=== PATIENT | male | born 1945 | race Asian ===

== ENCOUNTER 2017-01-04 02:21 | Emergency (ER) | payer OTHER, MEDICAID ==
[~2017-01-04] VITALS: Ht 162.6 cm; Wt 63.5 kg
[~2017-01-04 02:21] MED LIST: NITROFURANTOIN100 M2 ORAL; NKM
[2017-01-04 02:44] VITALS: BP 141/93
--- NOTE | 2017-01-04 02:46 | Emergency Room Report ---
History of Present Illness General Chief Complaint: Male Urogenital Problems Source: Patient Present Illness HPI Patient presents reporting that since 1:30 in the afternoon yesterday he was not able to urinate he is now having increased pressure and discomfort in the suprapubic area Patient had a similar problem last year Hasn't had any problems since then patient reports taking some portuguese medication for a recent URI Patient denies any other chest pain or shortness of breath denies any back or flank pain Denies any blood in the urine Allergies: Coded Allergies: No Known Allergies (Verified Allergy, Unknown, 09/18/10) Patient History Past Medical History: see triage record Pertinent Family History: none Reviewed Nursing Documentation: PMH: Agreed, PSxH: Agreed Nursing Documentation-PMH Hx Asthma: Yes Review of Systems All Other Systems: negative except mentioned in HPI Physical Exam Vital Signs Date Time Temp Pulse Resp B/P Pulse Ox O2 Delivery O2 Flow Rate FiO2 01/04/17 02:26 97.7 83 18 141/93 98 Room Air Sp02 EP Interpretation: reviewed, normal General Appearance: well appearing, no apparent distress Head: normocephalic, atraumatic Eyes: bilateral eye EOMI, bilateral eye PERRL ENT: hearing grossly normal, normal pharynx, TMs + canals normal, uvula midline Neck: full range of motion, supple, no meningismus, no bony tend Respiratory: lungs clear, normal breath sounds, no rhonchi, no respiratory distress, no retraction, no accessory muscle use Cardiovascular #1: normal peripheral pulses, regular rate, rhythm, no edema, no gallop, no JVD, no murmur Gastrointestinal: normal bowel sounds, non tender, soft, no mass, no organomegaly, non-distended, no guarding, no hernia, no pulsatile mass, no rebound Genitourinary: no CVA tenderness Musculoskeletal: normal inspection Neurologic: oriented x3, responsive, associate director qa III-XII nml as tested, motor strength/ tone normal, sensory intact Psychiatric: mood/affect normal Skin: normal color, no rash, warm/dry, palpation normal Lymphatic: normal inspection, no adenopathy Medical Decision Making Diagnostic Impression: Primary Impression: Acute urinary retention ER Course Multiple differentials including not limited to stricture, enlarged prostate, infectious pathology entertained After the catheter was placed patient did have almost 750 mL of urine output At this time Castrejon will be left in place the patient requires close outpatient urology followup Last Vital Signs Date Time Temp Pulse Resp B/P Pulse Ox O2 Delivery O2 Flow Rate FiO2 01/04/17 02:26 97.7 83 18 141/93 98 Room Air Status: improved Disposition: HOME, SELF-CARE Condition: Improved Additional Instructions: Patient is provided with the discharge instructions notified to follow up with primary doctor in the next 2-3 days otherwise return to the er with any worsening symptoms. Please note that this report is being documented using [employer] technology. This can lead to erroneous entry secondary to incorrect interpretation by the dictating instrument. LOIS ORTIZ D.O. January 04, 2017 02:46
[2017-01-04 03:35] VITALS: BP 141/93
== END 2017-01-04 03:35 | disposition home or self-care (01) ==
LOC: EMR 02:45
DX: R33.9 Retention of urine, unspecified (principal); R39.198 Other difficulties with micturition
CPT/HCPCS: 51702

== ENCOUNTER 2018-07-28 07:31 | Emergency (ER) | payer MEDICARE, MEDICAID ==
[~2018-07-28] VITALS: Ht 167.6 cm; Wt 63.5 kg
[2018-07-28 07:49] VITALS: BP 118/76
--- NOTE | 2018-07-28 07:57 | Emergency Room Report ---
History of Present Illness General Chief Complaint: Male Urogenital Problems Source: Patient Present Illness HPI Patient is a 72-year-old male who presented after increased urinary retention since last night. Patient reports having increased nausea. He last voided last night. He had not been vomiting. Patient had prior history of prostate disease. The patient reports having increased abdominal discomfort. Allergies: Coded Allergies: No Known Allergies (Verified Allergy, Unknown, 09/18/10) Patient History Past Medical History: see triage record Reviewed Nursing Documentation: PMH: Agreed; PSxH: Agreed Nursing Documentation-PMH Past Medical History: No History, Except For Hx Asthma: Yes Hx Dialysis: No - BPH Review of Systems All Other Systems: negative except mentioned in HPI Physical Exam Vital Signs Date Time Temp Pulse Resp B/P (MAP) Pulse Ox O2 Delivery O2 Flow Rate FiO2 07/28/18 07:39 97.7 73 20 115/73 98 07/28/18 07:49 Room Air Sp02 EP Interpretation: reviewed, normal General Appearance: normal inspection, well appearing, no apparent distress, alert, GCS 15, non-toxic Head: atraumatic ENT: normal ENT inspection, hearing grossly normal, normal voice Neck: normal inspection, full range of motion, supple, no bony tend Respiratory: normal inspection, lungs clear, normal breath sounds, no respiratory distress, no retraction, no wheezing Cardiovascular #1: regular rate, rhythm, no edema Gastrointestinal: normal inspection, normal bowel sounds, soft, no guarding, no hernia, other - suprapubic bladder distention Genitourinary: no CVA tenderness Musculoskeletal: normal inspection, back normal, normal range of motion Neurologic: normal inspection, alert, oriented x3, responsive, passenger agent III-XII nml as tested, speech normal Psychiatric: normal inspection, judgement/insight normal, mood/affect normal Skin: normal inspection, normal color, no rash Medical Decision Making Diagnostic Impression: Primary Impression: Acute urinary retention ER Course Patient presented for urinary retention. The differential diagnosis included was not limited to prostatic hypertrophy, medication reaction, cauda equina syndrome, urinary infection among others. Patient has a benign exam and does not appear to require any further imaging or laboratory testing at this time. The Castrejon catheter was placed. Patient was advised to recheck with primary care physician for possible catheter removal. Patient given prescription for Flomax others no evidence of urinary infection this time. Last Vital Signs Date Time Temp Pulse Resp B/P (MAP) Pulse Ox O2 Delivery O2 Flow Rate FiO2 07/28/18 07:49 97.9 75 18 118/76 98 Room Air Status: improved Disposition: HOME, SELF-CARE Condition: Stable Scripts Tamsulosin Hcl (TAMSULOSIN HCL*) 0.4 Mg Cap.er.24h 0.4 MG ORAL BEDTIME, #14 CAP Prov: Simon Duque MD 07/28/18 Simon Duque MD Jul 28, 2018 07:57
[2018-07-28 08:57] LABS: APPEARANCE,URINE CLEAR; BILIRUBIN, URINE NEGATIVE (NEGATIVE); COLOR,URINE PALE YELLOW; GLUCOSE, URINE (UA) NEGATIVE (NEGATIVE); KETONES,URINE NEGATIVE (NEGATIVE); LEUKOCYTE ESTERASE ,URINE NEGATIVE (NEGATIVE); NITRITE,URINE NEGATIVE (NEGATIVE); PH,URINE 5 (4.5-8.0); PROTEIN,URINE NEGATIVE (NEGATIVE); UROBILINOGEN,URINE NORMAL MG/DL (0.0-1.0)
[2018-07-28] MEDS ORDERED: TAMSULOSIN HCL0.4 MG ORAL (09:07)
[2018-07-28 09:18] VITALS: BP 116/75
== END 2018-07-28 09:22 | disposition home or self-care (01) ==
LOC: EMR 09:00
DX: N40.1 Benign prostatic hyperplasia with lower urinary tract symptoms (principal); R33.8 Other retention of urine; J45.909 Unspecified asthma, uncomplicated
CPT/HCPCS: 51702; 81003; 99284

== ENCOUNTER 2019-02-14 05:43 | Emergency (ER) | payer MEDICARE, MEDICAID ==
[~2019-02-14] VITALS: Ht 165.1 cm; Wt 63.5 kg
[~2019-02-14 05:43] MED LIST changes: +TAMSULOSIN HCL0.4 MG ORAL
--- NOTE | 2019-02-14 05:50 | NUR ---
PT CALLED TO TRIAGE PT IS IN RESTROOM
[2019-02-14 06:08] VITALS: BP 103/61
--- NOTE | 2019-02-14 06:08 | NUR ---
ED Nurse Note: pt walked in c/o unable to urinate since last night, pt reports it happened twice before and came to hospital but doesn't take any medication for it, pt reports it happens only when he drinks alcohol. pt states he urinated prior to walk in but only small amount came out. denies pain. will cont monitor.
--- NOTE | 2019-02-14 06:22 | NUR ---
ED Nurse Note: 16 fr ferrer cath inserted per ERMD order, 10cc ns inserted, pt tolerated well, secured with dressing, 40cc yellow urine returned, specimen obtained, will send to lab.
--- NOTE | 2019-02-14 06:40 | NUR ---
ED Nurse Note: blood and urine specimen sent to lab.
[2019-02-14 06:51] LABS: APPEARANCE,URINE CLEAR; BILIRUBIN, URINE NEGATIVE (NEGATIVE); COLOR,URINE PALE YELLOW; GLUCOSE, URINE (UA) NEGATIVE (NEGATIVE); KETONES,URINE NEGATIVE (NEGATIVE); LEUKOCYTE ESTERASE ,URINE NEGATIVE (NEGATIVE); NITRITE,URINE NEGATIVE (NEGATIVE); PH,URINE 6 (4.5-8.0); PROTEIN,URINE NEGATIVE (NEGATIVE); UROBILINOGEN,URINE NORMAL MG/DL (0.0-1.0)
[2019-02-14 06:57] LABS: BASOPHILS % (AUTO) 2.4 % (0.0-2.0); EOSINOPHILS % (AUTO) 3.2 % (0.0-3.0); HEMATOCRIT 46.6 % (42.0-52.0); HEMOGLOBIN 15.4 G/DL (14.2-18.0); LYMPHOCYTES % (AUTO) 33.3 % (20.0-45.0); MEAN CORPUSCULAR VOLUME 91 FL (80-99); MONOCYTES % (AUTO) 7.4 % (1.0-10.0); NEUTROPHILS % (AUTO) 53.7 % (45.0-75.0); PLATELET COUNT 218 K/UL (150-450); RED CELL DISTRIBUTION WIDTH 12.7 % (11.6-14.8)
--- NOTE | 2019-02-14 07:03 | NUR ---
HAND-OFF: Report given to RN LATESHA and endorsed care.
[2019-02-14] MEDS ORDERED: Tamsulosin 0.4mg cap ORAL ONE (07:04)
--- NOTE | 2019-02-14 07:10 | NUR ---
ED Nurse Note: pt was medicated as ordered, pt able to tolerate po med.pt denies any pain. vs within normal limit. will continue to monitor
[2019-02-14 07:17] VITALS: BP 102/77
[2019-02-14 07:21] LABS: ANION GAP 12 mmol/L (5-15); BLOOD UREA NITROGEN 23 mg/dL (7-18); CARBON DIOXIDE 23 MMOL/L (21-32); CHLORIDE 104 MMOL/L (98-107); CREATININE 1.1 MG/DL (0.55-1.30); POTASSIUM 4.2 MMOL/L (3.5-5.1); SODIUM 139 MMOL/L (136-145)
[2019-02-14 07:25] LABS: ALANINE AMINOTRANSFERASE 28 U/L (12-78); ALBUMIN 4.3 G/DL (3.4-5.0); ALBUMIN/GLOBULIN RATIO 1.3 (1.0-2.7); ALKALINE PHOSPHATASE 65 U/L (46-116); ASPARTATE AMINO TRANSFERASE 18 U/L (15-37); BILIRUBIN,TOTAL 0.6 MG/DL (0.2-1.0)
--- NOTE | 2019-02-14 07:38 | Emergency Room Report ---
History of Present Illness General Chief Complaint: Male Urogenital Problems Source: Patient Present Illness [facility] The patient presents with difficulty urinating. He is able to pass a small amount. He has had to have a Castrejon catheter placed twice in the past. He has not followed up with a urologist. He denies taking medication in the past. However review of old records suggest that he was on Flomax in the past. He denies fevers or chills. He denies dysuria. He has not changed any medications at this time. He rates the pain 0/10. There is no hematuria. No chest pain, palpitations, nausea, vomiting, diarrhea, abdominal pain, shortness of breath, depression, visual changes, headache. History of asthma. Allergies: Coded Allergies: No Known Allergies (Verified Allergy, Unknown, 09/18/10) Patient History Past Medical History: see triage record Past Surgical History: appy Nursing Documentation-H Past Medical History: No History, Except For Hx Hypertension: Yes Hx Asthma: Yes Hx Dialysis: No - BPH Review of Systems All Other Systems: negative except mentioned in HPI Physical Exam Vital Signs Date Time Temp Pulse Resp B/P (MAP) Pulse Ox O2 Delivery O2 Flow Rate FiO2 02/14/19 06:02 98.2 88 19 103/61 (75) 97 Room Air Sp02 EP Interpretation: reviewed, normal General Appearance: well appearing, no apparent distress, GCS 15 Head: normocephalic, atraumatic Eyes: bilateral eye normal inspection, bilateral eye PERRL ENT: moist mucus membranes Neck: supple Respiratory: lungs clear, normal breath sounds Cardiovascular #1: regular rate, rhythm Cardiovascular #2: 2+ radial (R) Gastrointestinal: normal inspection, normal bowel sounds, non tender, non- distended, other - Suprapubic fullness Genitourinary: no CVA tenderness, penis normal Musculoskeletal: back normal, gait/station normal, normal range of motion Neurologic: alert, oriented x3, grossly normal Psychiatric: mood/affect normal Skin: no rash Medical Decision Making Diagnostic Impression: Primary Impression: Acute urinary retention ER Course Patient presents with inability to urinate. Differential includes UTI, BPH, renal failure, electrolyte imbalance amongst others. A Castrejon will be passed. Laboratory tests are indicated. Flomax will be given. Large amount of urine is obtained with passing the Castrejon. He has improvement after this. Laboratory with normal renal function and no evidence of UTI. Patient improved. Discussed the need to have the Castrejon continue until the Flomax begins to work. He is also advised to follow-up with a urologist. He has none and therefore will follow up with his own private doctor. Instructions were given both to the patient and his . Patient stable for outpatient observation and treatment. Laboratory Tests Test 02/14/19 06:10 White Blood Count 7.0 K/UL (4.8-10.8) Red Blood Count 5.10 M/UL (4.70-6.10) Hemoglobin 15.4 G/DL (14.2-18.0) Hematocrit 46.6 % (42.0-52.0) Mean Corpuscular Volume 91 FL (80-99) Mean Corpuscular Hemoglobin 30.2 PG (27.0-31.0) Mean Corpuscular Hemoglobin Concent 33.1 G/DL (32.0-36.0) Red Cell Distribution Width 12.7 % (11.6-14.8) Platelet Count 218 K/UL (150-450) Mean Platelet Volume 6.4 FL (6.5-10.1) L Neutrophils (%) (Auto) 53.7 % (45.0-75.0) Lymphocytes (%) (Auto) 33.3 % (20.0-45.0) Monocytes (%) (Auto) 7.4 % (1.0-10.0) Eosinophils (%) (Auto) 3.2 % (0.0-3.0) H Basophils (%) (Auto) 2.4 % (0.0-2.0) H Urine Color Pale yellow Urine Appearance Clear Urine pH 6 (4.5-8.0) Urine Specific [place] 1.010 (1.005-1.035) Urine Protein Negative (NEGATIVE) Urine Glucose (UA) Negative (NEGATIVE) Urine Ketones Negative (NEGATIVE) Urine Blood 1+ (NEGATIVE) H Urine Nitrite Negative (NEGATIVE) Urine Bilirubin Negative (NEGATIVE) Urine Urobilinogen Normal MG/DL (0.0-1.0) Urine Leukocyte Esterase Negative (NEGATIVE) Urine RBC 2-4 /HPF (0 - 0) H Urine WBC 0-2 /HPF (0 - 0) Urine Squamous Epithelial Cells Occasional /LPF Urine Bacteria Occasional /HPF (NONE) Sodium Level 139 MMOL/L (136-145) Potassium Level 4.2 MMOL/L (3.5-5.1) Chloride Level 104 MMOL/L (98-107) Carbon Dioxide Level 23 MMOL/L (21-32) Anion Gap 12 mmol/L (5-15) Blood Urea Nitrogen 23 mg/dL (7-18) H Creatinine 1.1 MG/DL (0.55-1.30) Estimate Glomerular Filtration Rate mL/min (>60) Glucose Level 102 MG/DL (74-106) Calcium Level 9.0 MG/DL (8.5-10.1) Total Bilirubin 0.6 MG/DL (0.2-1.0) Aspartate Amino Transferase (AST) 18 U/L (15-37) Alanine Aminotransferase (ALT) 28 U/L (12-78) Alkaline Phosphatase 65 U/L (46-116) Total Protein 7.7 G/DL (6.4-8.2) Albumin 4.3 G/DL (3.4-5.0) Globulin 3.4 g/dL Albumin/Globulin Ratio 1.3 (1.0-2.7) Lipase 117 U/L (73-393) Last Vital Signs Date Time Temp Pulse Resp B/P (MAP) Pulse Ox O2 Delivery O2 Flow Rate FiO2 02/14/19 07:49 98.5 62 16 102/77 98 Room Air Status: improved Disposition: HOME, SELF-CARE Condition: Improved Scripts Tamsulosin HCl (Flomax) 0.4 Mg Cap.er.24h 0.4 MG ORAL DAILY, #30 CAP 1 Refill Prov: Cj Sifuentes MD 02/14/19 Cj Sifuentes MD Feb 14, 2019 07:38
[2019-02-14] MEDS ORDERED: FLOMAX0.4 MG ORAL (07:40)
[2019-02-14 07:49] VITALS: BP 102/77
--- NOTE | 2019-02-14 07:49 | NUR ---
ER DISCHARGE NOTE: Patient is cleared to be discharged per ERMD, pt is aox4, on room air, with stable vital signs. pt was given dc and prescription instructions, pt was able to verbalize understanding, pt id band and iv site removed without complications. pt is able to ambulate with steady gait.pt left with ferrer catheter on as per md advise. pt teaching provided and pt verbalized understanding. pt took all belongings.
[2019-02-14] MEDS ORDERED: Tamsulosin 0.4mg cap ORAL SCH (21:00)
== END 2019-02-14 07:49 | disposition home or self-care (01) ==
LOC: EMR 07:45
DX: R33.9 Retention of urine, unspecified (principal); J45.909 Unspecified asthma, uncomplicated; I10 Essential (primary) hypertension
CPT/HCPCS: 36415; 80053; 81003; 83690; 85025; 99282

== ENCOUNTER 2020-08-07 12:42 | Inpatient (IN) | payer MEDICARE, MEDICAID ==
[~2020-08-07] VITALS: Ht 165.1 cm; Wt 65.8 kg
[~2020-08-07 12:42] MED LIST changes: +FLOMAX0.4 MG ORAL
[2020-08-07 12:50] VITALS: BP 118/80
[2020-08-07] MEDS ORDERED: Ketorolac 30mg Inj IV ONE (13:00)
[2020-08-07] MEDS ORDERED: dexAMETHasone 10mg/ml Inj IV ONE ×2 (13:15→13:18)
[2020-08-07] MEDS ORDERED: Albuterol/Ipratropium 3ml neb HHN ONE (13:15)
--- NOTE | 2020-08-07 13:17 | Emergency Room Report ---
History of Present Illness General Chief Complaint: Flu Like Symptoms Source: Patient, Family Member - Present Illness HPI Patient is a 74-year-old male past medical history of hypertension and asthma who presents to the ER complaining of flulike symptoms for 1 week. Patient co mplains of cough. He complains of generalized body aches and fatigue. He denies any chest pain or shortness of breath. Patient denies any abdominal pain or vomiting. He denies any dysuria or hematuria. His is also here for flulike symptoms. Allergies: Coded Allergies: No Known Allergies (Verified Allergy, Unknown, 09/18/10) COVID-19 Screening Contact w/high risk pt: No Experienced COVID-19 symptoms?: Yes COVID-19 Testing performed FARROWING WORKER: No Patient History Reviewed Nursing Documentation: PMH: Agreed; PSxH: Agreed Nursing Documentation-PMH Hx Hypertension: Yes Hx Asthma: Yes Hx Dialysis: No - BPH Review of Systems All Other Systems: negative except mentioned in HPI Physical Exam Vital Signs Date Time Temp Pulse Resp B/P (MAP) Pulse Ox O2 Delivery O2 Flow Rate FiO2 08/07/20 12:47 98.8 95 19 118/80 (93) 93 Room Air Sp02 EP Interpretation: reviewed, abnormal General Appearance: no apparent distress, alert, GCS 15, non-toxic Head: normocephalic, atraumatic Eyes: bilateral eye normal inspection, bilateral eye PERRL ENT: hearing grossly normal, normal pharynx, no angioedema, normal voice Neck: full range of motion, supple/symm/no masses Respiratory: chest non-tender, speaking full sentences, wheezing Cardiovascular #1: regular rate, rhythm Gastrointestinal: non tender, soft, no guarding, no rebound Rectal: deferred Musculoskeletal: normal range of motion Neurologic: acidizer III-XII nml as tested, oriented x3 Psychiatric: no suicidal/homicidal ideation Skin: no rash Lymphatic: no adenopathy Medical Decision Making Diagnostic Impression: Primary Impression: Influenza-like symptoms Additional Impression: Pneumonia ER Course Patient pending ER work-up, treatments, reevaluation and final disposition. Patient signed out to at 1400. EKG Diagnostic Results Troponin ordered: Yes When was troponin ordered?: Aug 07, 2020 EKG Time: 13:10 EP Interpretation: Renata Contreras MD Rate: normal - 88 bpm Rhythm: NSR ST Segments: no acute changes ASA given to the pt in ED: No Rhythm Strip Diag. Results Rhythm Strip Time: 13:16 EP Interpretation: yes - Renata Contreras MD Rate: 84 bpm Rhythm: NSR, no PVC's, no ectopy Chest X-Ray Diagnostic Results Chest X-Ray Diagnostic Results : Chest X-Ray Ordered: Yes # of Views/Limited/Complete: 1 View Indication: Chest Pain Interpretation: no effusion, no pneumothorax, other - Bilateral lower lobe patchy infiltrate Impression: Other - Atypical pneumonia Electronically Signed by: Renata Contreras MD Last Vital Signs Date Time Temp Pulse Resp B/P (MAP) Pulse Ox O2 Delivery O2 Flow Rate FiO2 08/07/20 12:47 98.8 95 19 118/80 (93) 93 Room Air Condition: Unknown Additional Instructions: Please note that this report is being documented using [employer] technology. This can lead to erroneous entry secondary to incorrect interpretation by the dictating instrument. Renata Contreras M.D. Aug 07, 2020 13:17
[2020-08-07] MEDS ORDERED: Cefepime HCl 2 GM in D5W 55 ML IVPB ONE (13:45)
[2020-08-07] MEDS ORDERED: Azithromycin 500 MG in NS 275 ML IV ONE (13:45)
[2020-08-07 14:12] LABS: CALCIUM 8.4 MG/DL (8.5-10.1); CREATININE 1.2 MG/DL (0.55-1.30); POTASSIUM 3.4 MMOL/L (3.5-5.1)
[2020-08-07 14:15] VITALS: BP 123/84
[2020-08-07 14:16] LABS: BASOPHILS % (AUTO) 2.9 % (0.0-2.0); HEMATOCRIT 43.7 % (42.0-52.0); HEMOGLOBIN 15.9 G/DL (14.2-18.0); LYMPHOCYTES % (AUTO) 12.4 % (20.0-45.0); MEAN CORPUSCULAR VOLUME 85 FL (80-99); MONOCYTES % (AUTO) 13.9 % (1.0-10.0); NEUTROPHILS % (AUTO) 70.8 % (45.0-75.0); PLATELET COUNT 131 K/UL (150-450); RED BLOOD COUNT 5.12 M/UL (4.70-6.10); RED CELL DISTRIBUTION WIDTH 11.8 % (11.6-14.8); WHITE BLOOD COUNT 4.6 K/UL (4.8-10.8)
[2020-08-07 14:24] LABS: APPEARANCE,URINE CLEAR; BILIRUBIN, URINE NEGATIVE (NEGATIVE); GLUCOSE, URINE (UA) NEGATIVE (NEGATIVE); KETONES,URINE NEGATIVE (NEGATIVE); LEUKOCYTE ESTERASE ,URINE NEGATIVE (NEGATIVE); NITRITE,URINE NEGATIVE (NEGATIVE); PH,URINE 6 (4.5-8.0); PROTEIN,URINE 3+ (NEGATIVE); UROBILINOGEN,URINE NORMAL MG/DL (0.0-1.0)
[2020-08-07 14:28] LABS: ALBUMIN/GLOBULIN RATIO 1.1 (1.0-2.7); BILIRUBIN,TOTAL 0.6 MG/DL (0.2-1.0); COLOR,URINE YELLOW
--- NOTE | 2020-08-07 14:35 | Diagnostic Imaging Report ---
EXAM: XR Chest, 1 View CLINICAL HISTORY: COUGH TECHNIQUE: Frontal view of the chest. COMPARISON: None FINDINGS: Hardware: None. Lungs/pleura: Patchy opacities in the mid and lower lung. No pleural effusion or pneumothorax. Heart/mediastinum: Normal. No cardiomegaly. Soft tissues: Unremarkable. Bones: No acute fracture. Upper abdomen: Normal. IMPRESSION: Patchy opacities in the mid and lower lungs, concerning for an infectious/inflammatory process.
[2020-08-07] MEDS ORDERED: LOSARTAN POTASS25 MG ORAL (14:56)
[2020-08-07] MEDS ORDERED: METOPROLOL TART25 MG ORAL (14:56)
--- NOTE | 2020-08-07 15:05 | Emergency Room Report ---
Physical Exam Vital Signs Date Time Temp Pulse Resp B/P (MAP) Pulse Ox O2 Delivery O2 Flow Rate FiO2 08/07/20 12:47 98.8 95 19 118/80 (93) 93 Room Air Sp02 EP Interpretation: reviewed, abnormal Medical Decision Making Diagnostic Impression: Primary Impression: COVID-19 Additional Impressions: Pneumonia Hypoxia Hyponatremia Asthma exacerbation HTN (hypertension) Abnormal EKG ER Course I, Dr Summer Goldstein, have assumed care of the patient. Initial workup, history, and physical performed by previous provider has been reviewed by myself and I have performed my own physical exam of the patient. Briefly, patient is a 74-year-old Hungarian speaking male with past medical history of asthma and hypertension presenting to the ER with myalgias, fatigue, and dry cough. Patient has relative hypoxia with SPO2 of approximately 90% on room air, however desats with ambulation. Rapid Covid swab was found to be positive. Chest x-ray is consistent with Covid. Lab work shows hyponatremia, likely hypovolemic hyponatremia from decreased p.o. intake. Inflammatory markers including Ferritin and LDH are elevated. EKG is nonischemic. No signs of severe right heart strain. Doubt massive PE ED intervention included fluids, azithromycin, cefepime, steroids, and breathing treatment Patient will be admitted to the hospital for Covid illness. High risk for decompensation. 1530: I spoke with Dr. Santiago, and reviewed the patients presentation, workup, results, and treatment. They will admit the patient for further care and evaluation, and assume care of the patient at this time. EKG Diagnostic Results PA Scribe Text 12-lead EKG (interpreted by me) Time: 1310 Indication: Rhythm analysis Tracing visualized and Interpreted by me. Rhythm: Normal sinus rhythm Rate: 88 bpm QTc: 454 Morphology: No_significant_ST_elevations_or_depressions, No STEMI Impression: Normal_sinus_rhythm_without_significant_abnormality Rhythm Strip Diag. Results Rhythm Strip Time: 15:05 EP Interpretation: yes Rate: 74 Rhythm: NSR, no PVC's, no ectopy Chest X-Ray Diagnostic Results Chest X-Ray Diagnostic Results : JC Scribe Celia Chest X-Ray: Views: 1 view(s) Indication:Cough Findings: Normal heart size. Mediastinum normal. Multiple infiltrate. Impression: GGO consistent with covid 19 The X-ray(s) were independently viewed and interpreted contemporaneously Electronically signed by Summer carrasco DO Reevaluation Time: 15:05 Last Vital Signs Date Time Temp Pulse Resp B/P (MAP) Pulse Ox O2 Delivery O2 Flow Rate FiO2 08/07/20 14:15 98.8 79 19 123/84 98 Room Air Status: improved Disposition: ADMITTED INPATIENT Admit Decision Time: 14:00 Condition: Stable Referrals: [facility] (PCP) Additional Instructions: Please note that this report is being documented using [employer] technology. This can lead to erroneous entry secondary to incorrect interpretation by the dictating instrument. Summer Goldstein D.O. Aug 07, 2020 15:05
[2020-08-07 16:33] VITALS: BP 146/99
[2020-08-07 18:32] VITALS: BP 131/85
[2020-08-07 19:55] VITALS: BP 130/81
[2020-08-07 23:19] VITALS: BP 133/92
[2020-08-08] VITALS (7 sets, daily range): BP systolic 119–139; BP diastolic 75–92
[2020-08-08 04:38] LABS: HEMOGLOBIN 15.5 G/DL (14.2-18.0); MEAN CORPUSCULAR VOLUME 82 FL (80-99); PLATELET COUNT 137 K/UL (150-450); RED BLOOD COUNT 4.97 M/UL (4.70-6.10); RED CELL DISTRIBUTION WIDTH 12.9 % (11.6-14.8); WHITE BLOOD COUNT 2.8 K/UL (4.8-10.8)
[2020-08-08 04:57] LABS: ANION GAP 10 mmol/L (5-15); BLOOD UREA NITROGEN 28 mg/dL (7-18); CALCIUM 8.1 MG/DL (8.5-10.1); CARBON DIOXIDE 23 MMOL/L (21-32); CHLORIDE 100 MMOL/L (98-107); CREATININE 1.1 MG/DL (0.55-1.30); POTASSIUM 4.1 MMOL/L (3.5-5.1); SODIUM 133 MMOL/L (136-145)
--- NOTE | 2020-08-08 18:00 | History and Physical Report ---
DATE OF ADMISSION: 08/07/2020 HISTORY AND PHYSICAL/PROGRESS NOTE HISTORY OF PRESENT ILLNESS: This is a 74-year-old male came to the emergency room for having dizziness, weakness, vomiting, and was found to have COVID in the emergency room. Patient is currently awake and alert, feeling generalized weakness, cough, short of breath. He is on 6 liter oxygen. PHYSICAL EXAMINATION: VITAL SIGNS: Blood pressure is 130/70, pulse 84 to 100, respirations 18 to 24, temperature, no fever. SKIN: Good skin turgor. HEENT: AT/NC. EOMI. PERRLA. NECK: Supple. No JVD. CHEST: Bilateral decreased breath sounds. Scattered crackles. CARDIOVASCULAR: Regular rhythm. ABDOMEN: Soft. Positive bowel sounds. Nontender. EXTREMITIES: No edema. GENITOURINARY: Deferred. ASSESSMENT: 1. COVID pneumonia. 2. Dizziness. 3. Recurrent vomiting. 4. COVID-19 positive. 5. Hypertension. PLAN: We will admit on telemetry bed. Start IV fluid, IV Decadron, IV Zithromax, IV Rocephin, bronchodilator treatments. Consider Pulmonary consult and ID consult and PT and OT. Kip Santiago M.D. DR: Deneen JOB#: [id number] CC:
[2020-08-08] MEDS ORDERED: Milk of Magnesia 30ml Ud ORAL PRN (20:15)
[2020-08-08] MEDS ORDERED: Albuterol 90mcg Inhaler 8gm INH PRN (21:00)
[2020-08-08] MEDS: guaiFENesin /DM 10ml syrup ORAL PRN (21:37)
[2020-08-09] VITALS: BP 124/81
[2020-08-09 04:00] VITALS: BP 128/77
[2020-08-09 08:05] VITALS: BP 132/78
[2020-08-09] MEDS: Losartan 25mg tab ORAL SCH (08:30)
[2020-08-09] MEDS: dexAMETHasone 10mg/ml Inj IV SCH (08:30)
[2020-08-09] MEDS: cefTRIAXone 1 GM in D5W 55 ML IVPB SCH (08:31)
--- NOTE | 2020-08-09 10:30 | History and Physical Report ---
HISTORY OF PRESENT ILLNESS: This is a 74-year-old Siamese male, came to the emergency room for having COVID pneumonia and generalized weakness, short of breath, hypoxia. The patient was also found to have hyponatremia. Chest x-ray is showing bilateral pneumonia. The patient is currently on 2 liter of oxygen, saturating 90%. PAST MEDICAL HISTORY: Significant for hypertension, hyperlipidemia, and asthma. MEDICATIONS: See the list. ALLERGIES: NKA. FAMILY HISTORY: Noncontributory. SOCIAL HISTORY: Lives at home. PHYSICAL EXAMINATION: GENERAL: This is an elderly male who is currently awake and still in mild to moderate short of breath. VITAL SIGNS: Blood pressure is 134/90, pulse 74, respirations 18, temperature, no fever. SKIN: He has good with skin turgor. HEENT: AT/NC. EOMI. PERRLA. NECK: Supple. No JVD. CHEST: Bilaterally few crackles. CARDIOVASCULAR: Regular rhythm. No gallop. No murmur. ABDOMEN: Soft, positive bowel sounds, nontender. EXTREMITIES: No edema. : Deferred. LABORATORY AND DIAGNOSTIC DATA: Sodium 129, white counts are 10,018. CMP all high. Chest x-ray showed bilateral pneumonia. ASSESSMENT: 1. COVID pneumonia. 2. Hyponatremia. 3. History of asthma. 4. Hypertension. 5. Hyperlipidemia. PLAN: We will admit on telemetry bed. Start IV antibiotics, IV Decadron, oxygen, bronchodilator treatments. Consider Pulmonary consult and ID consult. Continue in isolation. Regular diet, 2 g sodium diet. Continue oxygen and continue bronchodilator treatments. Kip Santiago M.D. DR: MOLINA JOB#: [id number] CC:
--- NOTE | 2020-08-09 10:48 | General Progress Note ---
Subjective Constitutional: Reports: weakness HEENT: Reports: no symptoms Cardiovascular: Reports: no symptoms Respiratory: Reports: cough, shortness of breath Gastrointestinal/Abdominal: Reports: poor fluid intake Genitourinary: Reports: no symptoms Neurologic/Psychiatric: Reports: weakness Allergies: Coded Allergies: No Known Allergies (Verified Allergy, Unknown, 09/18/10) Objective Last 24 Hour Vital Signs Date Time Temp Pulse Resp B/P (MAP) Pulse Ox O2 Delivery O2 Flow Rate FiO2 08/09/20 08:30 85 132/78 08/09/20 08:30 132/78 08/09/20 08:25 Room Air 08/09/20 08:05 99.9 85 20 132/78 (96) 94 08/09/20 04:00 97.7 75 18 128/77 (94) 94 08/09/20 00:51 97.7 08/09/20 00:00 101.7 89 17 124/81 (95) 94 08/08/20 21:00 Room Air 08/08/20 20:00 101.1 93 18 139/81 (100) 96 08/08/20 19:49 Room Air 08/08/20 18:01 98.0 82 18 120/80 97 Room Air 08/08/20 17:25 83 18 124/82 96 Room Air 08/08/20 12:58 86 18 131/85 95 Room Air Intake and Output 08/08/20 08/09/20 19:00 07:00 Intake Total 950 ml Output Total 900 ml Balance 50 ml Intake Oral 500 ml IV Total 450 ml Output Urine Total 900 ml # Voids 2 4 Height (Feet): 5 Height (Inches): 5.00 Weight (Pounds): 145 General Appearance: alert EENT: PERRL/EOMI Neck: supple Cardiovascular: regular rhythm Respiratory/Chest: crackles/rales Abdomen: non tender, soft Extremities: non-tender Assessment/Plan Assessment/Plan: covid 19 pna htn weakness dehydration iv abx iv decadrone encourage po fluids isolation fu labs dw charge nurse Adal Santiago MD Aug 09, 2020 10:48
[2020-08-09] MEDS: Azithromycin 500 MG in D5W 275 ML IV SCH (11:10)
[2020-08-09 11:16] VITALS: BP 120/78
[2020-08-09 16:00] VITALS: BP 115/72
[2020-08-09 20:00] VITALS: BP 123/80
[2020-08-09] MEDS: guaiFENesin /DM 10ml syrup ORAL PRN (22:46)
[2020-08-10] VITALS: BP 120/48
[2020-08-10 04:00] VITALS: BP 140/84
[2020-08-10 08:05] VITALS: BP 123/80
[2020-08-10] MEDS: Losartan 25mg tab ORAL SCH (08:25)
[2020-08-10] MEDS: dexAMETHasone 10mg/ml Inj IV SCH (08:26)
[2020-08-10] MEDS: cefTRIAXone 1 GM in D5W 55 ML IVPB SCH (08:26)
[2020-08-10] MEDS: guaiFENesin /DM 10ml syrup ORAL PRN ×3 (08:59→23:01)
[2020-08-10] MEDS: Azithromycin 500 MG in D5W 275 ML IV SCH (11:32)
[2020-08-10 11:47] VITALS: BP 135/81
--- NOTE | 2020-08-10 13:30 | Consultation ---
DATE OF CONSULTATION: 08/10/2020 INFECTIOUS DISEASES CONSULTATION REASON FOR CONSULTATION: COVID-19 disease. HISTORY OF PRESENT ILLNESS: This is a 74-year-old [place] male admitted on August 07, 2020 with dry cough, malaise, fatigue. At the time of admission, oxygen saturation was 90% on room air. PAST MEDICAL HISTORY: Asthma, hypertension. ALLERGIES: No known drug allergies. MEDICATIONS: Azithromycin, metoprolol, dexamethasone, ceftriaxone, albuterol, milk of magnesium. SOCIAL HISTORY: . No other history obtainable because of language barrier. PHYSICAL EXAMINATION: VITAL SIGNS: Temperature 97.9, pulse 65, blood pressure 135/81. GENERAL APPEARANCE: No acute distress. HEART: Normal rate. LUNGS: Clear. ABDOMEN: Soft. EXTREMITIES: No edema. NEUROLOGIC: Awake, alert. LABORATORY AND DIAGNOSTIC DATA: WBC 2.8, hemoglobin 15.5, hematocrit 41, platelets is 137. Sodium 133, potassium 4.4, chloride 100, bicarbonate 23, BUN 28, creatinine 1, glucose is 120. Chest x-ray showed patchy infiltrate in mid and lower lung concerning of infectious process. Blood culture negative. COVID test was positive. IMPRESSION: COVID-19 disease with pneumonia, currently oxygen saturation on room air is 96%, has hyponatremia, hypertension, asthma. RECOMMENDATION: May discontinue antibiotics and dexamethasone. At the end of my exam, I thank Dr. Santiago, for involving me in the care of this patient. Chavez Hammer M.D. DR: Vijay JOB#: [id number] CC:
--- NOTE | 2020-08-10 15:06 | Pulmonology Progress Note ---
Subjective ROS Limited/Unobtainable: No Allergies: Coded Allergies: No Known Allergies (Verified Allergy, Unknown, 09/18/10) Objective Last 24 Hour Vital Signs Date Time Temp Pulse Resp B/P (MAP) Pulse Ox O2 Delivery O2 Flow Rate FiO2 08/10/20 11:47 97.9 65 20 135/81 (99) 93 08/10/20 08:26 71 123/80 08/10/20 08:25 123/80 08/10/20 08:20 Nasal Cannula 2.0 08/10/20 08:05 98.1 71 20 123/80 (94) 93 08/10/20 04:00 97.3 67 20 140/84 (102) 98 08/10/20 00:00 97.2 80 20 120/48 (72) 99 08/09/20 22:28 65 123/80 08/09/20 21:00 Nasal Cannula 2.0 08/09/20 20:00 97.2 65 20 123/80 (94) 97 08/09/20 16:00 97.9 69 20 115/72 (86) 97 Intake and Output 08/09/20 08/10/20 19:00 07:00 Intake Total 1280 ml 150 ml Output Total 1200 ml 400 ml Balance 80 ml -250 ml Intake Oral 800 ml 150 ml IV Total 480 ml Output Urine Total 1200 ml 400 ml # Voids 4 2 Current Medications Medications (Trade) Dose Ordered Sig/Alayna Route PRN Reason Start Time Stop Time Status Last Admin Dose Admin Acetaminophen (Tylenol) 650 mg Q4H PRN ORAL Temp >100.5 08/08/20 20:15 09/07/20 20:14 08/09/20 00:21 Albuterol Sulfate (Proventil MDI) 2 puff Q8H PRN INH Shortness of Breath 08/08/20 21:00 11/06/20 20:59 08/08/20 21:37 Guaifenesin/ Dextromethorphan (Robitussin DM Syrup) 10 ml Q4H PRN ORAL For Cough 08/08/20 21:30 11/06/20 21:29 08/10/20 08:59 Losartan Potassium (Cozaar) 25 mg DAILY ORAL 08/09/20 09:00 09/08/20 08:59 08/10/20 08:25 Magnesium Hydroxide (Mom) 30 ml Q12H PRN ORAL Constipation 08/08/20 20:15 09/07/20 20:14 Metoprolol Tartrate (Lopressor) 25 mg EVERY 12 HOURS ORAL 08/09/20 09:00 11/07/20 08:59 08/10/20 08:26 Assessment/Plan Assessment/Plan Pulmonary Consultation HPI Patient is a 74-year-old man admitted with Covid19 Pneumonia, he has a past medical history of Hypertension and Asthma.He c/o flulike symptoms for 1 week,in addition to cough, generalized body aches and fatigue. No chest pain,abdominal pain or vomiting. No dysuria or hematuria. Allergies: No Known Allergies Past Medical History: Hypertension,BPH and Asthma All Other Systems: negative except mentioned in HPI FH: NC SH: NC Physical Exam Vital Signs noted General Appearance: no apparent distress, alert, GCS 15, non-toxic Head: normocephalic, atraumatic Eyes: bilateral eye normal inspection, bilateral eye PERRL ENT: hearing grossly normal, normal pharynx, no angioedema, normal voice Neck: full range of motion, supple/symm/no masses Respiratory: chest non-tender, speaking full sentences, wheezing Cardiovascular: regular rate, rhythm Gastrointestinal: non tender, soft, no guarding, no rebound Rectal: deferred Musculoskeletal: normal range of motion 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
--- NOTE | 2020-08-10 15:19 | General Progress Note ---
Subjective Allergies: Coded Allergies: No Known Allergies (Verified Allergy, Unknown, 09/18/10) Subjective doing ok in isolation for covid 19 on 2-3 litre weakness Objective Last 24 Hour Vital Signs Date Time Temp Pulse Resp B/P (MAP) Pulse Ox O2 Delivery O2 Flow Rate FiO2 08/10/20 11:47 97.9 65 20 135/81 (99) 93 08/10/20 08:26 71 123/80 08/10/20 08:25 123/80 08/10/20 08:20 Nasal Cannula 2.0 08/10/20 08:05 98.1 71 20 123/80 (94) 93 08/10/20 04:00 97.3 67 20 140/84 (102) 98 08/10/20 00:00 97.2 80 20 120/48 (72) 99 08/09/20 22:28 65 123/80 08/09/20 21:00 Nasal Cannula 2.0 08/09/20 20:00 97.2 65 20 123/80 (94) 97 08/09/20 16:00 97.9 69 20 115/72 (86) 97 Intake and Output 08/09/20 08/10/20 19:00 07:00 Intake Total 1280 ml 150 ml Output Total 1200 ml 400 ml Balance 80 ml -250 ml Intake Oral 800 ml 150 ml IV Total 480 ml Output Urine Total 1200 ml 400 ml # Voids 4 2 Height (Feet): 5 Height (Inches): 5.00 Weight (Pounds): 145 General Appearance: alert EENT: PERRL/EOMI Neck: supple Cardiovascular: normal rate Respiratory/Chest: crackles/rales Abdomen: non tender, soft Extremities: non-tender Assessment/Plan Assessment/Plan: covid 19 pna htn weakness dehydration iv abx iv decadrone encourage po fluids isolation fu labs dw charge nurse Adal Santiago MD Aug 10, 2020 15:19
[2020-08-10 16:00] VITALS: BP 129/79
[2020-08-10] MEDS: Enoxaparin 40mg Inj SUBQ SCH (16:16)
[2020-08-10 20:00] VITALS: BP 124/69
[2020-08-11] VITALS: BP 133/82
[2020-08-11 04:00] VITALS: BP 138/81
[2020-08-11 08:00] VITALS: BP 133/72
[2020-08-11] MEDS: Losartan 25mg tab ORAL SCH (09:23)
[2020-08-11 12:00] VITALS: BP 116/95
[2020-08-11] MEDS: guaiFENesin /DM 10ml syrup ORAL PRN ×2 (12:13→22:44)
--- NOTE | 2020-08-11 12:25 | Infectious Diseases Prog Note ---
Assessment/Plan Assessment/Plan antibiotics : none A 1. covid 19 pneumonia on room air with saturation 98 % 2. hypertension 3. asthma P 1. continue off antibiotics 2. continue isolation Subjective Constitutional: Denies: fever, chills Respiratory: Reports: shortness of breath; Denies: dry cough Gastrointestinal/Abdominal: Denies: nausea, vomiting, diarrhea Musculoskeletal: Denies: pain Allergies: Coded Allergies: No Known Allergies (Verified Allergy, Unknown, 09/18/10) Objective Last 24 Hour Vital Signs Date Time Temp Pulse Resp B/P (MAP) Pulse Ox O2 Delivery O2 Flow Rate FiO2 08/11/20 09:23 77 133/72 08/11/20 09:23 133/72 08/11/20 08:00 98.1 77 21 133/72 (92) 97 08/11/20 04:00 98.2 65 20 138/81 (100) 97 08/11/20 00:00 97.9 60 20 133/82 (99) 98 08/10/20 21:00 Room Air 08/10/20 21:00 66 124/69 08/10/20 20:00 97.3 66 20 124/69 (87) 96 08/10/20 16:00 98.4 62 18 129/79 (96) 98 Height (Feet): 5 Height (Inches): 5.00 Weight (Pounds): 145 Current Medications Medications (Trade) Dose Ordered Sig/Alayna Route PRN Reason Start Time Stop Time Status Last Admin Dose Admin Acetaminophen (Tylenol) 650 mg Q4H PRN ORAL Temp >100.5 08/08/20 20:15 09/07/20 20:14 08/09/20 00:21 Albuterol Sulfate (Proventil MDI) 2 puff Q8H PRN INH Shortness of Breath 08/08/20 21:00 11/06/20 20:59 08/08/20 21:37 Dextrose (Dextrose 50%) 25 ml Q30M PRN IV Hypoglycemia 08/10/20 15:00 11/08/20 14:59 Dextrose (Dextrose 50%) 50 ml Q30M PRN IV Hypoglycemia 08/10/20 15:00 11/08/20 14:59 Enoxaparin Sodium (Lovenox) 40 mg Q24H SUBQ 08/10/20 16:00 11/08/20 15:59 08/10/20 16:16 Guaifenesin/ Dextromethorphan (Robitussin DM Syrup) 10 ml Q4H PRN ORAL For Cough 08/08/20 21:30 11/06/20 21:29 08/11/20 12:13 Losartan Potassium (Cozaar) 25 mg DAILY ORAL 08/09/20 09:00 09/08/20 08:59 08/11/20 09:23 Magnesium Hydroxide (Mom) 30 ml Q12H PRN ORAL Constipation 08/08/20 20:15 09/07/20 20:14 Metoprolol Tartrate (Lopressor) 25 mg EVERY 12 HOURS ORAL 08/09/20 09:00 11/07/20 08:59 08/11/20 09:23 Jeremiah Coello MD Aug 11, 2020 12:25
--- NOTE | 2020-08-11 14:21 | General Progress Note ---
Subjective Allergies: Coded Allergies: No Known Allergies (Verified Allergy, Unknown, 09/18/10) Subjective doing ok in isolation for covid 19 on 2-3 litre weakness Objective Last 24 Hour Vital Signs Date Time Temp Pulse Resp B/P (MAP) Pulse Ox O2 Delivery O2 Flow Rate FiO2 08/11/20 12:00 97.3 72 18 116/95 (102) 97 08/11/20 09:23 77 133/72 08/11/20 09:23 133/72 08/11/20 09:00 Nasal Cannula 2.0 08/11/20 08:00 98.1 77 21 133/72 (92) 97 08/11/20 04:00 98.2 65 20 138/81 (100) 97 08/11/20 00:00 97.9 60 20 133/82 (99) 98 08/10/20 21:00 Room Air 08/10/20 21:00 66 124/69 08/10/20 20:00 97.3 66 20 124/69 (87) 96 08/10/20 16:00 98.4 62 18 129/79 (96) 98 Intake and Output 08/10/20 08/11/20 19:00 07:00 Intake Total 1030 ml Output Total 650 ml 300 ml Balance 380 ml -300 ml Intake Oral 700 ml IV Total 330 ml Output Urine Total 650 ml 300 ml # Voids 3 3 Height (Feet): 5 Height (Inches): 5.00 Weight (Pounds): 145 General Appearance: alert EENT: PERRL/EOMI Neck: supple Cardiovascular: regular rhythm Respiratory/Chest: lungs clear Abdomen: non tender, soft Extremities: normal range of motion, non-tender Assessment/Plan Assessment/Plan: covid 19 pna htn weakness dehydration iv abx iv decadrone encourage po fluids isolation fu labs dw charge nurse Adal Santiago MD Aug 11, 2020 14:21
[2020-08-11 16:00] VITALS: BP 145/71
[2020-08-11] MEDS: Enoxaparin 40mg Inj SUBQ SCH (16:32)
--- NOTE | 2020-08-11 17:58 | Pulmonology Progress Note ---
Subjective ROS Limited/Unobtainable: No Constitutional: Denies: fever, chills Gastrointestinal/Abdominal: Denies: nausea, vomiting, diarrhea Musculoskeletal: Denies: pain Allergies: Coded Allergies: No Known Allergies (Verified Allergy, Unknown, 09/18/10) Objective Last 24 Hour Vital Signs Date Time Temp Pulse Resp B/P (MAP) Pulse Ox O2 Delivery O2 Flow Rate FiO2 08/11/20 16:00 98.0 79 20 145/71 (95) 97 08/11/20 12:00 97.3 72 18 116/95 (102) 97 08/11/20 09:23 77 133/72 08/11/20 09:23 133/72 08/11/20 09:00 Nasal Cannula 2.0 08/11/20 08:00 98.1 77 21 133/72 (92) 97 08/11/20 04:00 98.2 65 20 138/81 (100) 97 08/11/20 00:00 97.9 60 20 133/82 (99) 98 08/10/20 21:00 Room Air 08/10/20 21:00 66 124/69 08/10/20 20:00 97.3 66 20 124/69 (87) 96 Intake and Output 08/10/20 08/11/20 19:00 07:00 Intake Total 1030 ml Output Total 650 ml 300 ml Balance 380 ml -300 ml Intake Oral 700 ml IV Total 330 ml Output Urine Total 650 ml 300 ml # Voids 3 3 Current Medications Medications (Trade) Dose Ordered Sig/Alayna Route PRN Reason Start Time Stop Time Status Last Admin Dose Admin Acetaminophen (Tylenol) 650 mg Q4H PRN ORAL Temp >100.5 08/08/20 20:15 09/07/20 20:14 08/09/20 00:21 Albuterol Sulfate (Proventil MDI) 2 puff Q8H PRN INH Shortness of Breath 08/08/20 21:00 11/06/20 20:59 08/08/20 21:37 Dextrose (Dextrose 50%) 25 ml Q30M PRN IV Hypoglycemia 08/10/20 15:00 11/08/20 14:59 Dextrose (Dextrose 50%) 50 ml Q30M PRN IV Hypoglycemia 08/10/20 15:00 11/08/20 14:59 Enoxaparin Sodium (Lovenox) 40 mg Q24H SUBQ 08/10/20 16:00 11/08/20 15:59 08/11/20 16:32 Guaifenesin/ Dextromethorphan (Robitussin DM Syrup) 10 ml Q4H PRN ORAL For Cough 08/08/20 21:30 11/06/20 21:29 08/11/20 12:13 Losartan Potassium (Cozaar) 25 mg DAILY ORAL 08/09/20 09:00 09/08/20 08:59 08/11/20 09:23 Magnesium Hydroxide (Mom) 30 ml Q12H PRN ORAL Constipation 08/08/20 20:15 09/07/20 20:14 Metoprolol Tartrate (Lopressor) 25 mg EVERY 12 HOURS ORAL 08/09/20 09:00 11/07/20 08:59 08/11/20 09:23 Assessment/Plan Assessment/Plan Pulmonary Progress Note HPI Patient is a 74-year-old man admitted with Covid19 Pneumonia, he has a past medical history of Hypertension and Asthma.He c/o flulike symptoms for 1 week,in addition to cough, generalized body aches and fatigue. No chest pain,abdominal pain or vomiting. No dysuria or hematuria. Allergies: No Known Allergies Past Medical History: Hypertension,BPH and Asthma Stable on 2L/min NC O2 Physical Exam Vital Signs noted General Appearance: no apparent distress, alert, GCS 15, non-toxic Head: normocephalic, atraumatic Eyes: bilateral eye normal inspection, bilateral eye PERRL ENT: hearing grossly normal, normal pharynx, no angioedema, normal voice Neck: full range of motion, supple/symm/no masses Respiratory: chest non-tender, speaking full sentences, wheezing Cardiovascular: regular rate, rhythm Gastrointestinal: non tender, soft, no guarding, no rebound Rectal: deferred Musculoskeletal: normal range of motion 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
[2020-08-11 20:00] VITALS: BP 138/74
[2020-08-12 04:00] VITALS: BP 136/78
[2020-08-12 08:00] VITALS: BP 131/78
[2020-08-12] MEDS: Losartan 25mg tab ORAL SCH (08:37)
[2020-08-12 12:00] VITALS: BP 127/80
--- NOTE | 2020-08-12 14:54 | General Progress Note ---
Subjective Allergies: Coded Allergies: No Known Allergies (Verified Allergy, Unknown, 09/18/10) Subjective doing ok in isolation for covid 19 on 2-3 litre weakness Objective Last 24 Hour Vital Signs Date Time Temp Pulse Resp B/P (MAP) Pulse Ox O2 Delivery O2 Flow Rate FiO2 08/12/20 12:00 98.3 67 16 127/80 (96) 96 08/12/20 09:00 Nasal Cannula 2.0 08/12/20 08:37 77 131/78 08/12/20 08:37 131/78 08/12/20 08:00 96 08/12/20 08:00 97.9 77 16 131/78 (95) 08/12/20 04:00 98.6 78 20 136/78 (97) 97 08/11/20 21:00 74 138/78 08/11/20 21:00 Nasal Cannula 2.0 08/11/20 20:00 99.5 74 20 138/74 (95) 97 08/11/20 16:00 98.0 79 20 145/71 (95) 97 Intake and Output 08/11/20 08/12/20 19:00 07:00 Intake Total 720 ml 460 ml Output Total 1100 ml 750 ml Balance -380 ml -290 ml Intake Oral 720 ml 460 ml Output Urine Total 1100 ml 750 ml # Voids 1 2 Height (Feet): 5 Height (Inches): 5.00 Weight (Pounds): 145 General Appearance: alert EENT: PERRL/EOMI Neck: supple Cardiovascular: regular rhythm Respiratory/Chest: lungs clear Abdomen: non tender, soft Extremities: non-tender Assessment/Plan Assessment/Plan: covid 19 pna htn weakness dehydration iv abx iv decadrone encourage po fluids isolation fu labs dw charge nurse Adal Santiago MD Aug 12, 2020 14:54
--- NOTE | 2020-08-12 15:28 | Pulmonology Progress Note ---
Subjective ROS Limited/Unobtainable: No Constitutional: Denies: fever, chills Gastrointestinal/Abdominal: Denies: nausea, vomiting, diarrhea Musculoskeletal: Denies: pain Allergies: Coded Allergies: No Known Allergies (Verified Allergy, Unknown, 09/18/10) Subjective care noted comfortable Objective Last 24 Hour Vital Signs Date Time Temp Pulse Resp B/P (MAP) Pulse Ox O2 Delivery O2 Flow Rate FiO2 08/12/20 12:00 98.3 67 16 127/80 (96) 96 08/12/20 09:00 Nasal Cannula 2.0 08/12/20 08:37 77 131/78 08/12/20 08:37 131/78 08/12/20 08:00 96 08/12/20 08:00 97.9 77 16 131/78 (95) 08/12/20 04:00 98.6 78 20 136/78 (97) 97 08/11/20 21:00 74 138/78 08/11/20 21:00 Nasal Cannula 2.0 08/11/20 20:00 99.5 74 20 138/74 (95) 97 08/11/20 16:00 98.0 79 20 145/71 (95) 97 Intake and Output 08/11/20 08/12/20 19:00 07:00 Intake Total 720 ml 460 ml Output Total 1100 ml 750 ml Balance -380 ml -290 ml Intake Oral 720 ml 460 ml Output Urine Total 1100 ml 750 ml # Voids 1 2 Objective deferred due to COVID Current Medications Medications (Trade) Dose Ordered Sig/Alayna Route PRN Reason Start Time Stop Time Status Last Admin Dose Admin Acetaminophen (Tylenol) 650 mg Q4H PRN ORAL Temp >100.5 08/08/20 20:15 09/07/20 20:14 08/09/20 00:21 Albuterol Sulfate (Proventil MDI) 2 puff Q8H PRN INH Shortness of Breath 08/08/20 21:00 11/06/20 20:59 08/08/20 21:37 Dextrose (Dextrose 50%) 25 ml Q30M PRN IV Hypoglycemia 08/10/20 15:00 11/08/20 14:59 Dextrose (Dextrose 50%) 50 ml Q30M PRN IV Hypoglycemia 08/10/20 15:00 11/08/20 14:59 Enoxaparin Sodium (Lovenox) 40 mg Q24H SUBQ 08/10/20 16:00 11/08/20 15:59 08/11/20 16:32 Guaifenesin/ Dextromethorphan (Robitussin DM Syrup) 10 ml Q4H PRN ORAL For Cough 08/08/20 21:30 11/06/20 21:29 08/11/20 22:44 Losartan Potassium (Cozaar) 25 mg DAILY ORAL 08/09/20 09:00 09/08/20 08:59 08/12/20 08:37 Magnesium Hydroxide (Mom) 30 ml Q12H PRN ORAL Constipation 08/08/20 20:15 09/07/20 20:14 Metoprolol Tartrate (Lopressor) 25 mg EVERY 12 HOURS ORAL 08/09/20 09:00 11/07/20 08:59 08/12/20 08:37 Assessment/Plan Assessment/Plan Impression: Covid19 Pneumonia Asthma Hypertension BPH Plan care noted ID follow up O2PRN Monitor labs impression, plan, and exam edited and reviewed in detail care discussed with Morgan Aguilar MD Aug 12, 2020 15:28
[2020-08-12 16:00] VITALS: BP 126/75
[2020-08-12] MEDS: Enoxaparin 40mg Inj SUBQ SCH (16:27)
--- NOTE | 2020-08-12 17:21 | Infectious Diseases Prog Note ---
Assessment/Plan Assessment/Plan A 1. covid19 pneumonia on room air oxygen 2. hypertension 3. asthma P 1. continue off antibiotics 2. continue isolation Subjective ROS Limited/Unobtainable: Yes Respiratory: Reports: no symptoms Allergies: Coded Allergies: No Known Allergies (Verified Allergy, Unknown, 09/18/10) Objective Last 24 Hour Vital Signs Date Time Temp Pulse Resp B/P (MAP) Pulse Ox O2 Delivery O2 Flow Rate FiO2 08/12/20 12:00 98.3 67 16 127/80 (96) 96 08/12/20 09:00 Nasal Cannula 2.0 08/12/20 08:37 77 131/78 08/12/20 08:37 131/78 08/12/20 08:00 96 08/12/20 08:00 97.9 77 16 131/78 (95) 08/12/20 04:00 98.6 78 20 136/78 (97) 97 08/11/20 21:00 74 138/78 08/11/20 21:00 Nasal Cannula 2.0 08/11/20 20:00 99.5 74 20 138/74 (95) 97 Height (Feet): 5 Height (Inches): 5.00 Weight (Pounds): 145 General Appearance: no acute distress HEENT: mucous membranes moist Respiratory/Chest: lungs clear Cardiovascular: normal rate Abdomen: soft, non tender Neurologic/Psychiatric: alert, responsive Current Medications Medications (Trade) Dose Ordered Sig/Alayna Route PRN Reason Start Time Stop Time Status Last Admin Dose Admin Acetaminophen (Tylenol) 650 mg Q4H PRN ORAL Temp >100.5 08/08/20 20:15 09/07/20 20:14 08/09/20 00:21 Albuterol Sulfate (Proventil MDI) 2 puff Q8H PRN INH Shortness of Breath 08/08/20 21:00 11/06/20 20:59 08/08/20 21:37 Dextrose (Dextrose 50%) 25 ml Q30M PRN IV Hypoglycemia 08/10/20 15:00 11/08/20 14:59 Dextrose (Dextrose 50%) 50 ml Q30M PRN IV Hypoglycemia 08/10/20 15:00 11/08/20 14:59 Enoxaparin Sodium (Lovenox) 40 mg Q24H SUBQ 08/10/20 16:00 11/08/20 15:59 08/12/20 16:27 Guaifenesin/ Dextromethorphan (Robitussin DM Syrup) 10 ml Q4H PRN ORAL For Cough 08/08/20 21:30 11/06/20 21:29 08/11/20 22:44 Losartan Potassium (Cozaar) 25 mg DAILY ORAL 08/09/20 09:00 09/08/20 08:59 08/12/20 08:37 Magnesium Hydroxide (Mom) 30 ml Q12H PRN ORAL Constipation 08/08/20 20:15 09/07/20 20:14 Metoprolol Tartrate (Lopressor) 25 mg EVERY 12 HOURS ORAL 08/09/20 09:00 11/07/20 08:59 08/12/20 08:37 Chavez Hammer MD Aug 12, 2020 17:21
[2020-08-12 20:00] VITALS: BP 125/75
[2020-08-13] VITALS (7 sets, daily range): BP systolic 112–133; BP diastolic 68–82
[2020-08-13 07:13] LABS: BASOPHILS % (AUTO) 2.5 % (0.0-2.0); LYMPHOCYTES % (AUTO) 14.2 % (20.0-45.0); MEAN CORPUSCULAR VOLUME 93 FL (80-99); MONOCYTES % (AUTO) 14.5 % (1.0-10.0); NEUTROPHILS % (AUTO) 66.8 % (45.0-75.0); PLATELET COUNT 242 K/UL (150-450); RED BLOOD COUNT 4.71 M/UL (4.70-6.10); RED CELL DISTRIBUTION WIDTH 11.9 % (11.6-14.8); WHITE BLOOD COUNT 6.6 K/UL (4.8-10.8)
[2020-08-13 07:41] LABS: ANION GAP 6 mmol/L (5-15); BLOOD UREA NITROGEN 21 mg/dL (7-18); CALCIUM 7.8 MG/DL (8.5-10.1); CARBON DIOXIDE 26 MMOL/L (21-32); CHLORIDE 103 MMOL/L (98-107); CREATININE 0.9 MG/DL (0.55-1.30); POTASSIUM 4.1 MMOL/L (3.5-5.1); SODIUM 135 MMOL/L (136-145)
[2020-08-13] MEDS: Losartan 25mg tab ORAL SCH (08:38)
--- NOTE | 2020-08-13 10:35 | Infectious Diseases Prog Note ---
Assessment/Plan Assessment/Plan antibiotics : none A 1. covid 19 pneumonia on 2 liters with saturation 95 % 2. hypertension 3. asthma P 1. continue off antibiotics 2. continue isolation Subjective ROS Limited/Unobtainable: Yes Allergies: Coded Allergies: No Known Allergies (Verified Allergy, Unknown, 09/18/10) Objective Last 24 Hour Vital Signs Date Time Temp Pulse Resp B/P (MAP) Pulse Ox O2 Delivery O2 Flow Rate FiO2 08/13/20 08:38 82 120/68 08/13/20 08:38 120/68 08/13/20 08:00 98.1 82 18 120/68 (85) 95 08/13/20 04:00 97.9 69 16 123/80 (94) 95 08/13/20 00:00 98.0 66 18 125/71 (89) 95 08/12/20 21:16 70 125/75 08/12/20 20:40 Nasal Cannula 2.0 08/12/20 20:00 98.1 70 18 125/75 (92) 95 08/12/20 16:00 97.9 69 16 126/75 (92) 97 08/12/20 12:00 98.3 67 16 127/80 (96) 96 Height (Feet): 5 Height (Inches): 5.00 Weight (Pounds): 145 Laboratory Tests Test 08/13/20 06:38 White Blood Count 6.6 K/UL (4.8-10.8) Red Blood Count 4.71 M/UL (4.70-6.10) Hemoglobin 15.0 G/DL (14.2-18.0) Hematocrit 44.0 % (42.0-52.0) Mean Corpuscular Volume 93 FL (80-99) Mean Corpuscular Hemoglobin 31.8 PG (27.0-31.0) H Mean Corpuscular Hemoglobin Concent 34.0 G/DL (32.0-36.0) Red Cell Distribution Width 11.9 % (11.6-14.8) Platelet Count 242 K/UL (150-450) Mean Platelet Volume 7.2 FL (6.5-10.1) Neutrophils (%) (Auto) 66.8 % (45.0-75.0) Lymphocytes (%) (Auto) 14.2 % (20.0-45.0) L Monocytes (%) (Auto) 14.5 % (1.0-10.0) H Eosinophils (%) (Auto) 2.0 % (0.0-3.0) Basophils (%) (Auto) 2.5 % (0.0-2.0) H Sodium Level 135 MMOL/L (136-145) L Potassium Level 4.1 MMOL/L (3.5-5.1) Chloride Level 103 MMOL/L (98-107) Carbon Dioxide Level 26 MMOL/L (21-32) Anion Gap 6 mmol/L (5-15) Blood Urea Nitrogen 21 mg/dL (7-18) H Creatinine 0.9 MG/DL (0.55-1.30) Estimat Glomerular Filtration Rate > 60 mL/min (>60) Glucose Level 101 MG/DL (74-106) Calcium Level 7.8 MG/DL (8.5-10.1) L Current Medications Medications (Trade) Dose Ordered Sig/Alayna Route PRN Reason Start Time Stop Time Status Last Admin Dose Admin Acetaminophen (Tylenol) 650 mg Q4H PRN ORAL Temp >100.5 08/08/20 20:15 09/07/20 20:14 08/09/20 00:21 Albuterol Sulfate (Proventil MDI) 2 puff Q8H PRN INH Shortness of Breath 08/08/20 21:00 11/06/20 20:59 08/08/20 21:37 Dextrose (Dextrose 50%) 25 ml Q30M PRN IV Hypoglycemia 08/10/20 15:00 11/08/20 14:59 Dextrose (Dextrose 50%) 50 ml Q30M PRN IV Hypoglycemia 08/10/20 15:00 11/08/20 14:59 Enoxaparin Sodium (Lovenox) 40 mg Q24H SUBQ 08/10/20 16:00 11/08/20 15:59 08/12/20 16:27 Guaifenesin/ Dextromethorphan (Robitussin DM Syrup) 10 ml Q4H PRN ORAL For Cough 08/08/20 21:30 11/06/20 21:29 08/11/20 22:44 Losartan Potassium (Cozaar) 25 mg DAILY ORAL 08/09/20 09:00 09/08/20 08:59 08/13/20 08:38 Magnesium Hydroxide (Mom) 30 ml Q12H PRN ORAL Constipation 08/08/20 20:15 09/07/20 20:14 Metoprolol Tartrate (Lopressor) 25 mg EVERY 12 HOURS ORAL 08/09/20 09:00 11/07/20 08:59 08/13/20 08:38 Jeremiah Coello MD Aug 13, 2020 10:35
--- NOTE | 2020-08-13 11:09 | Pulmonology Progress Note ---
Subjective ROS Limited/Unobtainable: Yes Constitutional: Denies: fever, chills Gastrointestinal/Abdominal: Denies: nausea, vomiting, diarrhea Musculoskeletal: Denies: pain Allergies: Coded Allergies: No Known Allergies (Verified Allergy, Unknown, 09/18/10) Subjective care noted comfortable Objective Last 24 Hour Vital Signs Date Time Temp Pulse Resp B/P (MAP) Pulse Ox O2 Delivery O2 Flow Rate FiO2 08/13/20 09:00 Room Air 08/13/20 08:38 82 120/68 08/13/20 08:38 120/68 08/13/20 08:00 98.1 82 18 120/68 (85) 95 08/13/20 04:00 97.9 69 16 123/80 (94) 95 08/13/20 00:00 98.0 66 18 125/71 (89) 95 08/12/20 21:16 70 125/75 08/12/20 20:40 Nasal Cannula 2.0 08/12/20 20:00 98.1 70 18 125/75 (92) 95 08/12/20 16:00 97.9 69 16 126/75 (92) 97 08/12/20 12:00 98.3 67 16 127/80 (96) 96 Intake and Output 08/12/20 08/13/20 19:00 07:00 Intake Total 500 ml 600 ml Output Total 1000 ml Balance 500 ml -400 ml Intake Oral 500 ml 600 ml Output Urine Total 1000 ml # Voids 2 3 Objective deferred due to COVID Laboratory Tests 08/13/20 06:38: White Blood Count 6.6, Red Blood Count 4.71, Hemoglobin 15.0, Hematocrit 44.0, Mean Corpuscular Volume 93, Mean Corpuscular Hemoglobin 31.8H, Mean Corpuscular Hemoglobin Concent 34.0, Red Cell Distribution Width 11.9, Platelet Count 242, Mean Platelet Volume 7.2, Neutrophils (%) (Auto) 66.8, Lymphocytes (%) (Auto) 14.2L, Monocytes (%) (Auto) 14.5H, Eosinophils (%) (Auto) 2.0, Basophils (%) (Auto) 2.5H, Sodium Level 135L, Potassium Level 4.1, Chloride Level 103, Carbon Dioxide Level 26, Anion Gap 6, Blood Urea Nitrogen 21H, Creatinine 0.9, Estimat Glomerular Filtration Rate > 60, Glucose Level 101, Calcium Level 7.8L Current Medications Medications (Trade) Dose Ordered Sig/Alayna Route PRN Reason Start Time Stop Time Status Last Admin Dose Admin Acetaminophen (Tylenol) 650 mg Q4H PRN ORAL Temp >100.5 08/08/20 20:15 09/07/20 20:14 08/09/20 00:21 Albuterol Sulfate (Proventil MDI) 2 puff Q8H PRN INH Shortness of Breath 08/08/20 21:00 11/06/20 20:59 08/08/20 21:37 Dextrose (Dextrose 50%) 25 ml Q30M PRN IV Hypoglycemia 08/10/20 15:00 11/08/20 14:59 Dextrose (Dextrose 50%) 50 ml Q30M PRN IV Hypoglycemia 08/10/20 15:00 11/08/20 14:59 Enoxaparin Sodium (Lovenox) 40 mg Q24H SUBQ 08/10/20 16:00 11/08/20 15:59 08/12/20 16:27 Guaifenesin/ Dextromethorphan (Robitussin DM Syrup) 10 ml Q4H PRN ORAL For Cough 08/08/20 21:30 11/06/20 21:29 08/11/20 22:44 Losartan Potassium (Cozaar) 25 mg DAILY ORAL 08/09/20 09:00 09/08/20 08:59 08/13/20 08:38 Magnesium Hydroxide (Mom) 30 ml Q12H PRN ORAL Constipation 08/08/20 20:15 09/07/20 20:14 Metoprolol Tartrate (Lopressor) 25 mg EVERY 12 HOURS ORAL 08/09/20 09:00 11/07/20 08:59 08/13/20 08:38 Assessment/Plan Assessment/Plan Impression: Covid19 Pneumonia Asthma Hypertension BPH Plan care noted ID follow up O2 off at present Monitor labs monitor imaging consider dc planning impression, plan, and exam edited and reviewed in detail care discussed with Morgan Aguilar MD Aug 13, 2020 11:08
[2020-08-13] MEDS: Enoxaparin 40mg Inj SUBQ SCH (16:32)
--- NOTE | 2020-08-13 20:08 | General Progress Note ---
Subjective Allergies: Coded Allergies: No Known Allergies (Verified Allergy, Unknown, 09/18/10) Subjective doing ok in isolation for covid 19 on 2-3 litre weakness Objective Last 24 Hour Vital Signs Date Time Temp Pulse Resp B/P (MAP) Pulse Ox O2 Delivery O2 Flow Rate FiO2 08/13/20 16:00 97.3 71 18 112/79 (90) 97 08/13/20 12:00 97.3 70 18 128/82 (97) 95 08/13/20 09:00 Room Air 08/13/20 08:38 82 120/68 08/13/20 08:38 120/68 08/13/20 08:00 98.1 82 18 120/68 (85) 95 08/13/20 04:00 97.9 69 16 123/80 (94) 95 08/13/20 00:00 98.0 66 18 125/71 (89) 95 08/12/20 21:16 70 125/75 08/12/20 20:40 Nasal Cannula 2.0 Intake and Output 08/12/20 08/13/20 19:00 07:00 Intake Total 500 ml 600 ml Output Total 1000 ml Balance 500 ml -400 ml Intake Oral 500 ml 600 ml Output Urine Total 1000 ml # Voids 2 3 Laboratory Tests 08/13/20 06:38: White Blood Count 6.6, Red Blood Count 4.71, Hemoglobin 15.0, Hematocrit 44.0, Mean Corpuscular Volume 93, Mean Corpuscular Hemoglobin 31.8H, Mean Corpuscular Hemoglobin Concent 34.0, Red Cell Distribution Width 11.9, Platelet Count 242, Mean Platelet Volume 7.2, Neutrophils (%) (Auto) 66.8, Lymphocytes (%) (Auto) 14.2L, Monocytes (%) (Auto) 14.5H, Eosinophils (%) (Auto) 2.0, Basophils (%) (Auto) 2.5H, Sodium Level 135L, Potassium Level 4.1, Chloride Level 103, Carbon Dioxide Level 26, Anion Gap 6, Blood Urea Nitrogen 21H, Creatinine 0.9, Estimat Glomerular Filtration Rate > 60, Glucose Level 101, Calcium Level 7.8L Height (Feet): 5 Height (Inches): 5.00 Weight (Pounds): 145 General Appearance: alert EENT: PERRL/EOMI Neck: supple Cardiovascular: regular rhythm Respiratory/Chest: crackles/rales Abdomen: non tender, soft Assessment/Plan Assessment/Plan: covid 19 pna htn weakness dehydration iv abx iv decadrone encourage po fluids isolation fu labs dw charge nurse Adal Santiago MD Aug 13, 2020 20:07
[2020-08-14 04:00] VITALS: BP 127/82
[2020-08-14 08:00] VITALS: BP 121/80
[2020-08-14] MEDS: Losartan 25mg tab ORAL SCH (08:49)
[2020-08-14 12:00] VITALS: BP 162/78
[2020-08-14 13:00] VITALS: BP 154/75
--- NOTE | 2020-08-14 14:55 | Pulmonology Progress Note ---
Subjective ROS Limited/Unobtainable: Yes Constitutional: Denies: fever, chills Gastrointestinal/Abdominal: Denies: nausea, vomiting, diarrhea Musculoskeletal: Denies: pain Allergies: Coded Allergies: No Known Allergies (Verified Allergy, Unknown, 09/18/10) Subjective care noted comfortable off oxygen Objective Last 24 Hour Vital Signs Date Time Temp Pulse Resp B/P (MAP) Pulse Ox O2 Delivery O2 Flow Rate FiO2 08/14/20 13:00 96.0 75 20 154/75 (101) 94 08/14/20 12:00 96.0 70 20 162/78 (106) 93 08/14/20 09:00 Room Air 08/14/20 08:49 80 121/80 08/14/20 08:49 121/80 08/14/20 08:00 96.0 80 20 121/80 (94) 95 08/14/20 04:00 98.2 72 20 127/82 (97) 95 08/13/20 23:33 98.0 75 18 130/78 (95) 96 08/13/20 20:25 78 133/80 08/13/20 20:23 Room Air 08/13/20 20:00 98.1 78 18 133/80 (97) 96 08/13/20 16:00 97.3 71 18 112/79 (90) 97 Intake and Output 08/13/20 08/14/20 19:00 07:00 Intake Total 500 ml 750 ml Balance 500 ml 750 ml Intake Oral 500 ml 750 ml # Voids 2 3 Objective deferred due to COVID Current Medications Medications (Trade) Dose Ordered Sig/Alayna Route PRN Reason Start Time Stop Time Status Last Admin Dose Admin Acetaminophen (Tylenol) 650 mg Q4H PRN ORAL Temp >100.5 08/08/20 20:15 09/07/20 20:14 08/09/20 00:21 Albuterol Sulfate (Proventil MDI) 2 puff Q8H PRN INH Shortness of Breath 08/08/20 21:00 11/06/20 20:59 08/08/20 21:37 Dextrose (Dextrose 50%) 25 ml Q30M PRN IV Hypoglycemia 08/10/20 15:00 11/08/20 14:59 Dextrose (Dextrose 50%) 50 ml Q30M PRN IV Hypoglycemia 08/10/20 15:00 11/08/20 14:59 Enoxaparin Sodium (Lovenox) 40 mg Q24H SUBQ 08/10/20 16:00 11/08/20 15:59 08/13/20 16:32 Guaifenesin/ Dextromethorphan (Robitussin DM Syrup) 10 ml Q4H PRN ORAL For Cough 08/08/20 21:30 11/06/20 21:29 08/11/20 22:44 Losartan Potassium (Cozaar) 25 mg DAILY ORAL 08/09/20 09:00 09/08/20 08:59 08/14/20 08:49 Magnesium Hydroxide (Mom) 30 ml Q12H PRN ORAL Constipation 08/08/20 20:15 09/07/20 20:14 Metoprolol Tartrate (Lopressor) 25 mg EVERY 12 HOURS ORAL 08/09/20 09:00 11/07/20 08:59 08/14/20 08:49 Assessment/Plan Assessment/Plan Impression: Covid19 Pneumonia Asthma Hypertension BPH Plan care noted ID follow up O2 off at present Monitor labs monitor imaging consider dc planning impression, plan, and exam edited and reviewed in detail care discussed with Morgan Aguilar MD Aug 14, 2020 14:55
--- NOTE | 2020-08-14 15:23 | Infectious Diseases Prog Note ---
Assessment/Plan Assessment/Plan A 1. covid19 pneumonia on room air oxygen 2. hypertension 3. asthma P 1. continue off antibiotics 2. continue isolation Subjective ROS Limited/Unobtainable: Yes Constitutional: Denies: fever Allergies: Coded Allergies: No Known Allergies (Verified Allergy, Unknown, 09/18/10) Objective Last 24 Hour Vital Signs Date Time Temp Pulse Resp B/P (MAP) Pulse Ox O2 Delivery O2 Flow Rate FiO2 08/14/20 13:00 96.0 75 20 154/75 (101) 94 08/14/20 12:00 96.0 70 20 162/78 (106) 93 08/14/20 09:00 Room Air 08/14/20 08:49 80 121/80 08/14/20 08:49 121/80 08/14/20 08:00 96.0 80 20 121/80 (94) 95 08/14/20 04:00 98.2 72 20 127/82 (97) 95 08/13/20 23:33 98.0 75 18 130/78 (95) 96 08/13/20 20:25 78 133/80 08/13/20 20:23 Room Air 08/13/20 20:00 98.1 78 18 133/80 (97) 96 08/13/20 16:00 97.3 71 18 112/79 (90) 97 Height (Feet): 5 Height (Inches): 5.00 Weight (Pounds): 145 HEENT: mucous membranes moist Respiratory/Chest: other - on room air oxygen Cardiovascular: normal rate Abdomen: soft, non tender Extremities: no edema Neurologic/Psychiatric: alert, responsive Current Medications Medications (Trade) Dose Ordered Sig/Alayna Route PRN Reason Start Time Stop Time Status Last Admin Dose Admin Acetaminophen (Tylenol) 650 mg Q4H PRN ORAL Temp >100.5 08/08/20 20:15 09/07/20 20:14 08/09/20 00:21 Albuterol Sulfate (Proventil MDI) 2 puff Q8H PRN INH Shortness of Breath 08/08/20 21:00 11/06/20 20:59 08/08/20 21:37 Dextrose (Dextrose 50%) 25 ml Q30M PRN IV Hypoglycemia 08/10/20 15:00 11/08/20 14:59 Dextrose (Dextrose 50%) 50 ml Q30M PRN IV Hypoglycemia 08/10/20 15:00 11/08/20 14:59 Enoxaparin Sodium (Lovenox) 40 mg Q24H SUBQ 08/10/20 16:00 11/08/20 15:59 08/13/20 16:32 Guaifenesin/ Dextromethorphan (Robitussin DM Syrup) 10 ml Q4H PRN ORAL For Cough 08/08/20 21:30 11/06/20 21:29 08/11/20 22:44 Losartan Potassium (Cozaar) 25 mg DAILY ORAL 08/09/20 09:00 09/08/20 08:59 08/14/20 08:49 Magnesium Hydroxide (Mom) 30 ml Q12H PRN ORAL Constipation 08/08/20 20:15 09/07/20 20:14 Metoprolol Tartrate (Lopressor) 25 mg EVERY 12 HOURS ORAL 08/09/20 09:00 11/07/20 08:59 08/14/20 08:49 Chavez Hammer MD Aug 14, 2020 15:23
--- NOTE | 2020-08-14 15:49 | General Progress Note ---
Subjective Allergies: Coded Allergies: No Known Allergies (Verified Allergy, Unknown, 09/18/10) Subjective doing ok in isolation for covid 19 on 2-3 litre weakness Objective Last 24 Hour Vital Signs Date Time Temp Pulse Resp B/P (MAP) Pulse Ox O2 Delivery O2 Flow Rate FiO2 08/14/20 13:00 96.0 75 20 154/75 (101) 94 08/14/20 12:00 96.0 70 20 162/78 (106) 93 08/14/20 09:00 Room Air 08/14/20 08:49 80 121/80 08/14/20 08:49 121/80 08/14/20 08:00 96.0 80 20 121/80 (94) 95 08/14/20 04:00 98.2 72 20 127/82 (97) 95 08/13/20 23:33 98.0 75 18 130/78 (95) 96 08/13/20 20:25 78 133/80 08/13/20 20:23 Room Air 08/13/20 20:00 98.1 78 18 133/80 (97) 96 08/13/20 16:00 97.3 71 18 112/79 (90) 97 Intake and Output 08/13/20 08/14/20 19:00 07:00 Intake Total 500 ml 750 ml Balance 500 ml 750 ml Intake Oral 500 ml 750 ml # Voids 2 3 Height (Feet): 5 Height (Inches): 5.00 Weight (Pounds): 145 General Appearance: alert EENT: PERRL/EOMI Neck: supple Cardiovascular: regular rhythm Respiratory/Chest: lungs clear Abdomen: non tender, soft Assessment/Plan Assessment/Plan: covid 19 pna htn weakness dehydration iv abx iv decadrone encourage po fluids isolation fu labs dw charge nurse Adal Santiago MD Aug 14, 2020 15:49
[2020-08-14 16:00] VITALS: BP 122/69
[2020-08-14] MEDS: Enoxaparin 40mg Inj SUBQ SCH (16:16)
[2020-08-14 20:30] VITALS: BP 121/73
[2020-08-15 04:00] VITALS: BP 118/75
[2020-08-15 08:00] VITALS: BP 121/64
[2020-08-15] MEDS: Losartan 25mg tab ORAL SCH (09:00)
--- NOTE | 2020-08-15 09:39 | Pulmonology Progress Note ---
Subjective ROS Limited/Unobtainable: Yes Constitutional: Denies: fever Gastrointestinal/Abdominal: Denies: nausea, vomiting, diarrhea Musculoskeletal: Denies: pain Allergies: Coded Allergies: No Known Allergies (Verified Allergy, Unknown, 09/18/10) Subjective care noted comfortable off oxygen Objective Last 24 Hour Vital Signs Date Time Temp Pulse Resp B/P (MAP) Pulse Ox O2 Delivery O2 Flow Rate FiO2 08/15/20 04:00 98.1 66 16 118/75 (89) 96 08/14/20 21:00 Room Air 08/14/20 20:59 74 121/73 08/14/20 20:30 97.9 74 18 121/73 (89) 95 08/14/20 16:00 98.2 71 20 122/69 (86) 93 08/14/20 13:00 96.0 75 20 154/75 (101) 94 08/14/20 12:00 96.0 70 20 162/78 (106) 93 Intake and Output 08/14/20 08/15/20 19:00 07:00 Intake Total 450 ml 360 ml Balance 450 ml 360 ml Intake Oral 450 ml 360 ml # Voids 2 1 Objective deferred due to COVID Current Medications Medications (Trade) Dose Ordered Sig/Alayna Route PRN Reason Start Time Stop Time Status Last Admin Dose Admin Acetaminophen (Tylenol) 650 mg Q4H PRN ORAL Temp >100.5 08/08/20 20:15 09/07/20 20:14 08/09/20 00:21 Albuterol Sulfate (Proventil MDI) 2 puff Q8H PRN INH Shortness of Breath 08/08/20 21:00 11/06/20 20:59 08/08/20 21:37 Clonidine HCl (Catapres Tab) 0.1 mg Q6H PRN ORAL For High Blood Pressure 08/14/20 15:30 11/12/20 15:29 Dextrose (Dextrose 50%) 25 ml Q30M PRN IV Hypoglycemia 08/10/20 15:00 11/08/20 14:59 Dextrose (Dextrose 50%) 50 ml Q30M PRN IV Hypoglycemia 08/10/20 15:00 11/08/20 14:59 Enoxaparin Sodium (Lovenox) 40 mg Q24H SUBQ 08/10/20 16:00 3/29/21 15:59 08/14/20 16:16 Guaifenesin/ Dextromethorphan (Robitussin DM Syrup) 10 ml Q4H PRN ORAL For Cough 08/08/20 21:30 11/06/20 21:29 08/11/20 22:44 Losartan Potassium (Cozaar) 50 mg DAILY ORAL 08/15/20 09:00 09/08/20 08:59 Magnesium Hydroxide (Mom) 30 ml Q12H PRN ORAL Constipation 08/08/20 20:15 09/07/20 20:14 Metoprolol Tartrate (Lopressor) 25 mg EVERY 12 HOURS ORAL 08/09/20 09:00 11/07/20 08:59 08/14/20 20:59 Assessment/Plan Assessment/Plan Impression: Covid19 Pneumonia Asthma Hypertension BPH Plan care noted ID follow up O2 off at present Monitor labs monitor imaging ok to dc per pulmonary impression, plan, and exam edited and reviewed in detail care discussed with Morgan Aguilar MD Aug 15, 2020 09:39
[2020-08-15 12:00] VITALS: BP_SYST 115; BP_SYST 90; BP_DIAS 56; BP_DIAS 79
--- NOTE | 2020-08-15 14:43 | General Progress Note ---
Subjective Allergies: Coded Allergies: No Known Allergies (Verified Allergy, Unknown, 09/18/10) Subjective doing ok in isolation for covid 19 on 2-3 litre weakness Objective Last 24 Hour Vital Signs Date Time Temp Pulse Resp B/P (MAP) Pulse Ox O2 Delivery O2 Flow Rate FiO2 08/15/20 12:00 97.9 78 18 90/56 (67) 93 08/15/20 09:00 121/64 08/15/20 09:00 72 121/64 08/15/20 08:00 96.6 72 18 121/64 (83) 97 08/15/20 04:00 98.1 66 16 118/75 (89) 96 08/14/20 21:00 Room Air 08/14/20 20:59 74 121/73 08/14/20 20:30 97.9 74 18 121/73 (89) 95 08/14/20 16:00 98.2 71 20 122/69 (86) 93 Intake and Output 08/14/20 08/15/20 19:00 07:00 Intake Total 450 ml 360 ml Balance 450 ml 360 ml Intake Oral 450 ml 360 ml # Voids 2 1 Height (Feet): 5 Height (Inches): 5.00 Weight (Pounds): 145 General Appearance: alert EENT: PERRL/EOMI Neck: supple Cardiovascular: regular rhythm Respiratory/Chest: lungs clear Abdomen: non tender, soft Assessment/Plan Assessment/Plan: covid 19 pna htn weakness dehydration iv abx iv decadrone encourage po fluids isolation fu labs dc plan home charge nurse Adal Santiago MD Aug 15, 2020 14:43
[2020-08-15 16:00] VITALS: BP 109/84
[2020-08-15] MEDS: Enoxaparin 40mg Inj SUBQ SCH (16:16)
[2020-08-15 20:00] VITALS: BP 122/83
[2020-08-15] MEDS: guaiFENesin /DM 10ml syrup ORAL PRN (22:08)
[2020-08-16] VITALS: BP 120/75
[2020-08-16 04:00] VITALS: BP 129/77
[2020-08-16 08:00] VITALS: BP 132/88
[2020-08-16] MEDS: Losartan 25mg tab ORAL SCH (10:16)
[2020-08-16 12:00] VITALS: BP 132/85
--- NOTE | 2020-08-16 14:13 | General Progress Note ---
Subjective Allergies: Coded Allergies: No Known Allergies (Verified Allergy, Unknown, 09/18/10) Subjective doing ok in isolation for covid 19 weakness Objective Last 24 Hour Vital Signs Date Time Temp Pulse Resp B/P (MAP) Pulse Ox O2 Delivery O2 Flow Rate FiO2 08/16/20 10:16 132/88 08/16/20 10:16 81 132/88 08/16/20 09:00 Room Air 08/16/20 08:00 96.7 81 18 132/88 (103) 97 08/16/20 04:00 97.7 73 16 129/77 (94) 95 08/16/20 00:00 97.7 68 18 120/75 (90) 93 08/15/20 22:08 83 122/83 08/15/20 21:00 Room Air 08/15/20 20:00 98.0 83 18 122/83 (96) 94 08/15/20 16:00 98.2 96 18 109/84 (92) 95 Intake and Output 08/15/20 08/16/20 19:00 07:00 Intake Total 600 ml 360 ml Balance 600 ml 360 ml Intake Oral 600 ml Other 360 ml # Voids 3 2 # Bowel Movements 1 Height (Feet): 5 Height (Inches): 5.00 Weight (Pounds): 145 General Appearance: alert EENT: PERRL/EOMI Cardiovascular: normal rate Respiratory/Chest: normal breath sounds Abdomen: non tender, soft Extremities: non-tender Assessment/Plan Assessment/Plan: covid 19 pna htn weakness dehydration dc abx dc decadrone encourage po fluids isolation dc plan home with [facility] charge nurse Adal Santiago MD Aug 16, 2020 14:13
[2020-08-16] MEDS ORDERED: LOSARTAN POTASS50 MG ORAL (15:22)
[2020-08-16] MEDS ORDERED: ALBUTEROL SULF8.5 G1 INH (15:23)
[2020-08-16] MEDS: Enoxaparin 40mg Inj SUBQ SCH (16:00)
--- NOTE | 2020-08-16 16:47 | Infectious Diseases Prog Note ---
Assessment/Plan Assessment/Plan antibiotics : none A 1. covid 19 pneumonia improving on room air with saturation 94 % 2. hypertension 3. asthma P 1. continue off antibiotics 2. continue isolation Subjective Constitutional: Denies: fever, chills Respiratory: Denies: shortness of breath, dry cough Gastrointestinal/Abdominal: Denies: nausea, vomiting, diarrhea Musculoskeletal: Denies: pain Allergies: Coded Allergies: No Known Allergies (Verified Allergy, Unknown, 09/18/10) Objective Last 24 Hour Vital Signs Date Time Temp Pulse Resp B/P (MAP) Pulse Ox O2 Delivery O2 Flow Rate FiO2 08/16/20 12:00 97.7 76 18 132/85 (101) 95 08/16/20 10:16 132/88 08/16/20 10:16 81 132/88 08/16/20 09:00 Room Air 08/16/20 08:00 96.7 81 18 132/88 (103) 97 08/16/20 04:00 97.7 73 16 129/77 (94) 95 08/16/20 00:00 97.7 68 18 120/75 (90) 93 08/15/20 22:08 83 122/83 08/15/20 21:00 Room Air 08/15/20 20:00 98.0 83 18 122/83 (96) 94 Height (Feet): 5 Height (Inches): 5.00 Weight (Pounds): 145 Jeremiah Coello MD Aug 16, 2020 16:47
--- NOTE | 2020-08-16 16:56 | Pulmonology Progress Note ---
Subjective ROS Limited/Unobtainable: Yes Constitutional: Denies: fever, chills Gastrointestinal/Abdominal: Denies: nausea, vomiting, diarrhea Musculoskeletal: Denies: pain Allergies: Coded Allergies: No Known Allergies (Verified Allergy, Unknown, 09/18/10) Subjective care noted comfortable off oxygen Objective Last 24 Hour Vital Signs Date Time Temp Pulse Resp B/P (MAP) Pulse Ox O2 Delivery O2 Flow Rate FiO2 08/16/20 12:00 97.7 76 18 132/85 (101) 95 08/16/20 10:16 132/88 08/16/20 10:16 81 132/88 08/16/20 09:00 Room Air 08/16/20 08:00 96.7 81 18 132/88 (103) 97 08/16/20 04:00 97.7 73 16 129/77 (94) 95 08/16/20 00:00 97.7 68 18 120/75 (90) 93 08/15/20 22:08 83 122/83 08/15/20 21:00 Room Air 08/15/20 20:00 98.0 83 18 122/83 (96) 94 Intake and Output 08/15/20 08/16/20 19:00 07:00 Intake Total 600 ml 360 ml Balance 600 ml 360 ml Intake Oral 600 ml Other 360 ml # Voids 3 2 # Bowel Movements 1 Objective deferred due to COVID Assessment/Plan Assessment/Plan Impression: Covid19 Pneumonia Asthma Hypertension BPH Plan care noted ID follow up O2 off at present Monitor labs monitor imaging ok to dc per pulmonary impression, plan, and exam edited and reviewed in detail care discussed with Morgan Aguilar MD Aug 16, 2020 16:55
--- NOTE | 2020-08-17 16:00 | Discharge Summary ---
Discharge Summary Discharge Summary _ Date of admission: 08/07/2020 Date of discharge: 08/16/[address] Santiago History of Present Illness and Brief Hospital Course Mr. Tellez is a 74-year-old male with past medical history of hypertension and asthma who presented to the ER for evaluation of flulike symptoms x1 week. Patient complained of cough, generalized body aches, and fatigue. He denied any abdominal pain, vomiting, chest pain, shortness of breath, dysuria or hematuria. He reported that his was having similar symptoms. Patient tested positive for COVID-19 in the ER. His EKG showed normal sinus rhythm. His chest x-ray showed bilateral lower lobe patchy infiltrates which was suspicious for atypical pneumonia. Patient was saturating at 90% on room air in the ER and was given supplemental oxygen. His laboratory studies showed hyponatremia, likely hypovolemic hyponatremia from decreased oral intake. Inflammatory markers including ferritin and LDH were elevated. ED interventions included fluids, azithromycin, cefepime, steroids, and breathing treatment. Patient was admitted to the hospital for further evaluation and management. Due to his COVID-19 status, patient was put in isolation. Given his stable oxygenation with mild symptoms, he was observed off antibiotics and dexamethasone. His oxygen saturation was closely monitored. His saturation and vital signs remained stable except transient hypertension. On the day of discharge patient was medically stable with normal work of breathing. Patient was instructed to continue self-isolation for 2 more days. Patient drove his car home. Consultants: Infectious disease Dr. Hammer Pulmonology Dr. Santos Discharge Condition Improved and stable Final diagnoses COVID-19 pneumonia History of hypertension History of asthma Dehydration History of BPH I have been assigned to dictate discharge summary for this account. I was not involved in the patient's management Fredy Holguin Aug 17, 2020 16:00
--- NOTE | 2020-08-18 02:12 | Cardiology Report ---
APPROVED REPORT EKG Measurement Heart [id number] <Conclusion> Normal sinus rhythm Normal ECG
== END 2020-08-16 16:15 | disposition home health service (06) | DRG 177 ==
LOC: EMR 13:11 → 4E 15:13 → EDBEDREQ 08-08 17:37
DX: U07.1 COVID-19 (principal); J12.82 Pneumonia due to coronavirus disease 2019; E87.1 Hypo-osmolality and hyponatremia; J45.901 Unspecified asthma with (acute) exacerbation; I10 Essential (primary) hypertension; E78.5 Hyperlipidemia, unspecified; J45.909 Unspecified asthma, uncomplicated; N40.0 Benign prostatic hyperplasia without lower urinary tract symptoms; E86.0 Dehydration
CPT/HCPCS: 36415; 71045; 80048; 80053; 81003; 82728; 82803; 83605; 83615; 83735; 83880; 84484; 85007; 85025; 85379; 85610; 85730; 86140; 86710; 87040; 93005; 94640; 96361; 96365; 96367; 96375; 99285; J7030; J7620; U0002